=== PATIENT | female | born 1980 ===

== ENCOUNTER 2024-10-17 12:18 | Emergency (ER) | payer MEDICAID, SELFPAY ==
[2024-10-17 12:27] VITALS: BP 167/100; PULSE 59; RESP 20; TEMP 36.4; O2SAT 97
--- NOTE | 2024-10-17 13:16 | ED.GENADUL_ITS ---
Discharge Plan Disposition Patient Disposition: Home Discharge Details Clinical Impression: Back pain, Spasm of back muscles Primary Care Provider: Lilly,Local ED Provider: Audie Guajardo Home Meds and New Rx's Prescriptions: New gabapentin 300 mg capsule 300 mg PO TID Qty: 30 0RF diazepam 5 mg tablet 5 mg PO QHS PRNQty: 5 0RF diazepam 5 mg tablet 5 mg PO QHS PRNQty: 5 0RF Continued pregabalin 300 mg capsule 300 mg PO BID hydrochlorothiazide 25 mg tablet 25 mg PO DAILY metformin 500 mg tablet 500 mg PO BID Discharge Instructions Additional Instructions: You are seen in the emergency department for your back pain. Please take these medications as prescribed. Please not drive or drink alcohol after taking these medications. Please return to the emergency department as we discussed if you lose control of your bowels or bladder if you pass out or if you have any other concerns. Otherwise please follow-up with your primary care provider in the next month. For your pain please take medications as follows: 1. Take acetaminophen (Tylenol), 1,000 mg (two 500 mg tabs) every 6 hours [2. Take ibuprofen (Advil), 400 mg every 6 hours.] Discharge Data Discharge Date/Time-TO BE ENTERED AT DEPARTURE: 10/17/24 14:09 HPI General Date/Time Provider Initiated Documentation: 10/17/24 12:31 . HPI Narrative: MDM This is an overall very well-appearing normothermic and not tachycardic 44-year-old female with low back pain lacking red red flags appropriate for empiric trial of discharge with expectant outpatient management. No pain out of proportion to suggest necrotizing soft tissue infection. No acute neurological deficits to suggest acute cord pathology. No loss of bowel or bladder control to suggest cauda equina syndrome. Not anticoagulated and no recent spinal procedures to suggest increased risk for spinal epidural hematoma. Not an IV drug user no recent fevers to suggest increased risk for spinal epidural abscess so I did not feel the patient required an MRI. Patient is neurologically intact so I am not suspicious for CVA nor multiple sclerosis. No history of malignancy to suggest increased risk for pathological fractures so no indication for imaging. Patient requested a refill for her gabapentin which I gave her 30 mg p.o. 3 times daily. Given no weakness in feet nor numbness nor sensory changes I did not feel the patient required assessment of her distal lower extremity pulses. In the event that there is a component of spasm I also treated her with 5 mg of diazepam after reviewing her PDMP record where she had no other prescriptions for benzodiazepines. Discussed that she should return to the emergency department if she lost control of her bowel or bladder if he passed out or if she took any falls. We also discussed that she will follow-up with her new primary care provider in the area. She understood her return indications and was discharged from the emergency department. HPI This is a 44-year-old female with history of back pain arriving to the emergency department in setting of aching pain in her thoracic back that radiates to her right arm and her left leg. She reports that she has been shuffling snow recently. She reports that over the past 3 days she has had worsening pain. She has not lost control of her bowels or bladder. She has no history of malignancy. She denies history of anticoagulation use. She is connecting locally with a PCP. She denies IV drug use. She has not taken any recent falls. She does not have any abdominal pain or chest pain. Exam General: Uncomfortable-appearing in no acute distress speaking in complete sentences. Head: Normocephalic, atraumatic. Eye: Extraocular eye movements intact. No conjunctival injection. No scleral icterus. Ear, nose, mouth, throat: Grossly normal inspection. Normal voice, handling secretions normally. Neck: Trachea midline. Back: Diffuse paraspinal muscle spasm throughout thoracic and lumbar spine. No step-offs no deformities. No midline thoracic nor lumbar spinal tenderness. Cardiovascular: Well-perfused distal extremities. Respiratory: Nonlabored respiration. Gastrointestinal: Nondistended abdomen. Musculoskeletal: Patient has intact strength bilateral lowers on hip flexion and extension knee flexion extension dorsi plantarflexion and extension. No clonus bilaterally ankle reflexes. 5 out of 5 upper extremity strength dorsi and plantarflexion. W Skin: Normal for age and race, grossly normal temperature and turgor. No acute rash. Neurologic: Alert and appropriate, no apparent acute deficits. GCS 15. Psychiatric: Mood and manner are appropriate. Grooming and personal hygiene are appropriate. Related Data Home Medications ?Medication ?Instructions ?Recorded ?Confirmed diazepam 5 mg tablet 5 mg PO QHS PRN #5 tabs 10/17/24 diazepam 5 mg tablet 5 mg PO QHS PRN #5 tabs 10/17/24 gabapentin 300 mg capsule 300 mg PO TID #30 caps 10/17/24 hydrochlorothiazide 25 mg tablet 25 mg PO DAILY 10/17/24 10/17/24 metformin 500 mg tablet 500 mg PO BID 10/17/24 10/17/24 pregabalin 300 mg capsule 300 mg PO BID 10/17/24 10/17/24 Previous Rx's ?Medication ?Instructions ?Recorded diazepam 5 mg tablet 5 mg PO QHS PRN #5 tabs 10/17/24 diazepam 5 mg tablet 5 mg PO QHS PRN #5 tabs 10/17/24 gabapentin 300 mg capsule 300 mg PO TID #30 caps 10/17/24 Allergies Allergy/AdvReac Type Severity Reaction Status Date / Time No Known Allergies Allergy Unverified 10/17/24 12:30 General Stated Complaint: Nk/Back Pain LIA: 4 Course Vital Signs Vital signs: Vital Signs Temperature 36.4 C 10/17/24 12:27 Pulse 59 L 10/17/24 12:27 Respiratory Rate 20 10/17/24 12:27 Blood Pressure 167/100 H 10/17/24 12:27 Pulse Oximetry 97 10/17/24 12:27 Temperature 36.4 C 10/17/24 12:27 Pulse 59 L 10/17/24 12:27 Respiratory Rate 20 10/17/24 12:27 Blood Pressure 167/100 H 10/17/24 12:27 Blood Pressure Position Sitting 10/17/24 12:27 Pulse Oximetry 97 10/17/24 12:27 Oxygen Delivery Method Room Air 10/17/24 12:27 Oxygen Flow Rate 0 10/17/24 12:27 Medical Decision Making Quality:SDOH Health Related Social Needs: No Data to Display PFSH All Active Problems (Updated 10/17/24 @ 13:16 by Audie Guajardo MD) Spasm of back muscles (Acute) Back pain (Acute) Social History Smoking/Tobacco Use Status: Former Tobacco Use Quit Date: 12/03/08 Smoking risk assessment performed?: Yes Alcohol Intake: never Substance use type: marijuana Details: has medical card for pain control Do you feel safe at home: Yes Do you feel safe in your relationship?: Yes
[2024-10-17] MEDS: Acetaminophen 500 MG TAB 1000 MG PO (13:37)
[2024-10-17] MEDS: Ibuprofen 600 MG TAB PO (13:37)
[2024-10-17] MEDS: Gabapentin 300 MG CAP PO (13:37)
[2024-10-17] MEDS: diazePAM 5 MG TAB PO (13:38)
== END 2024-10-17 14:09 | disposition home or self-care (01) ==
LOC: ER 13:37
PROVIDERS: Emergency Provider Emergency Medicine
DX: M62.830 Muscle spasm of back (principal); M54.9 Dorsalgia, unspecified
CPT/HCPCS: 99283

== ENCOUNTER 2024-11-09 17:31 | Emergency (ER) | payer MEDICAID, SELFPAY ==
[2024-11-09 17:35] VITALS: BP 149/103; PULSE 67; RESP 20; TEMP 36.7; O2SAT 98
[2024-11-09 17:38] VITALS: BP 149/103; PULSE 67; RESP 20; TEMP 36.7; O2SAT 98
[2024-11-09] MEDS: Benzocaine 20% Gel 30 GM JAR MM (18:18)
--- NOTE | 2024-11-09 19:43 | ED.GENADUL_ITS ---
Discharge Plan Disposition Patient Disposition: Home Condition: Stable Discharge Details Clinical Impression: Dental infection Primary Care Provider: Lilly,Local ED Provider: Guadalupe Reynolds Home Meds and New Rx's Prescriptions: New clindamycin HCl 150 mg capsule 450 mg PO TID Qty: 90 0RF Continued pregabalin 300 mg capsule 300 mg PO BID hydrochlorothiazide 25 mg tablet 25 mg PO DAILY metformin 500 mg tablet 500 mg PO BID gabapentin 300 mg capsule 300 mg PO TID Qty: 30 0RF penicillin V potassium 500 mg tablet 500 mg PO 4XD Patient Comments: TAKE ONE TABLET BY MOUTH FOUR TIMES A DAY FOR 7 DAYS Discharge Instructions Instructions: Dental Pain (DC) Additional Instructions: motrin and tylenol as needed for pain antibiotic as prescribed gargle with saltwater three times daily please be reevaluated by oral surgeon as soon as possible, I've attached a list of resources Discharge Data Discharge Date/Time-TO BE ENTERED AT DEPARTURE: 11/09/24 18:19 HPI General Date/Time Provider Initiated Documentation: 11/09/24 17:32 . HPI Narrative: The patient is a 44-year-old female presenting after multiple upper dental extractions. She reports purulent drainage and escalating pain over her teeth, with some right ear pain. She stopped taking penicillin 3 days ago due to nausea. She is alert, oriented, and in no acute distress. Oropharynx patent, uvula midline. Purulence noted in the socket of tooth number 9 with mild swelling. No hard or soft palate induration, maintaining secretions, no trismus. TMs clear bilaterally. No submandibular edema. No evidence of Chacho's angina. Started on clindamycin. Given a dental list for follow-up and encouraged to follow up with [facility]. Return precautions reviewed and understood. Related Data Home Medications ?Medication ?Instructions ?Recorded ?Confirmed gabapentin 300 mg capsule 300 mg PO TID #30 caps 10/17/24 11/09/24 hydrochlorothiazide 25 mg tablet 25 mg PO DAILY 10/17/24 11/09/24 metformin 500 mg tablet 500 mg PO BID 10/17/24 11/09/24 pregabalin 300 mg capsule 300 mg PO BID 10/17/24 11/09/24 clindamycin HCl 150 mg capsule 450 mg (3 x 150 mg) PO TID #90 caps 11/09/24 penicillin V potassium 500 mg 500 mg PO 4XD 11/09/24 11/09/24 tablet Previous Rx's ?Medication ?Instructions ?Recorded gabapentin 300 mg capsule 300 mg PO TID #30 caps 10/17/24 clindamycin HCl 150 mg capsule 450 mg (3 x 150 mg) PO TID #90 caps 11/09/24 Allergies Allergy/AdvReac Type Severity Reaction Status Date / Time No Known Allergies Allergy Unverified 11/09/24 17:39 General Stated Complaint: DentalOral LIA: 4 Exam Narrative Exam Narrative: General Appearance: Alert, oriented, not in acute distress. Vital signs: Within normal limits. HEENT: Oropharynx patent, uvula midline. Purulence in the socket of tooth number 9 with mild swelling. No hard or soft palate induration. Maintaining secretions, no trismus. TMs clear bilaterally. No submandibular edema. No evidence of Chacho's angina. Respiratory: Within normal limits. Skin: Warm and dry, no rash. Neurological: Normal. Course Vital Signs Vital signs: Vital Signs Temperature 36.7 C 11/09/24 17:35 Pulse 67 11/09/24 17:35 Respiratory Rate 20 11/09/24 17:35 Blood Pressure 149/103 H 11/09/24 17:35 Pulse Oximetry 98 11/09/24 17:35 Temperature 36.7 C 11/09/24 17:38 Pulse 67 11/09/24 17:38 Respiratory Rate 20 11/09/24 17:38 Blood Pressure 149/103 H 11/09/24 17:38 Blood Pressure Position Sitting 11/09/24 17:38 Pulse Oximetry 98 11/09/24 17:38 Oxygen Delivery Method Room Air 11/09/24 17:38 Oxygen Flow Rate 0 11/09/24 17:38 Pain Level 8 11/09/24 18:18 Medical Decision Making Initial Assessment: 44-year-old female presents status post multiple dental extractions to upper mouth with purulent drainage and worsening pain over tooth number 9. Denies difficulty swallowing or shortness of breath. Right ear pain present. Stopped penicillin 3 days ago due to nausea. ED Course: - Examination reveals purulence in the socket of tooth number 9, mild swelling, no evidence of Chacho's angina. - Started on clindamycin. - Provided a dental list for follow-up and encouraged to follow up with [facility]. - Return precautions reviewed and understood. Final Assessment: Patient presents with post-dental extraction status with purulent drainage and pain over tooth number 9. Examination shows purulence and mild swelling without evidence of Chacho's angina. Started on clindamycin and provided follow-up instructions. Clinical Impression: - Post-dental extraction status - Purulent drainage in socket of tooth number 9 - Mild swelling - No evidence of Chacho's angina Disposition: - Discharge - Follow-Up: Encouraged to follow up with [facility]. [facility] Components Evaluation: - Number of Differential Diagnoses or Management Options: Post-dental extraction status, purulent drainage, Chacho's angina. - Amount and Complexity of Data Reviewed: Examination findings, patient history. - Risk of Complication and Morbidity or Mortality: Low risk given no evidence of Chacho's angina and patient is alert and oriented. Quality:[facility] Health Related Social Needs: No Data to Display PFSH All Active Problems (Updated 11/09/24 @ 18:02 by DENA Neumann) Dental infection (Acute) Spasm of back muscles (Acute) Back pain (Acute) Social History Smoking/Tobacco Use Status: Former Tobacco Use Quit Date: 12/03/08 Smoking risk assessment performed?: Yes Alcohol Intake: never Substance use type: marijuana Details: has medical card for pain control Do you feel safe at home: Yes Do you feel safe in your relationship?: Yes PAWSS Have you Been Recently Intoxicated or Drunk Within the Last 30 days?: No Have you Ever Experienced Previous Episodes of Alcohol Withdrawal?: No Have you ever Experienced Withdrawal Seizures?: No Have you ever Experienced Delirium Tremens(DT)s?: No Have you ever undergone Alcohol Rehabilitation Treatment (i.e, inpt ot outpatient treatment programs)?: No Have you ever Experienced Blackouts?: No Have you ever Combined Alcohol with other Downers within the last 90 days?: No Have you ever Combined Alcohol with any other Substance of Abuse during the last 90 days?: No Positive Blood Alcohol level on Presentation? [PCS.BAL]: No Evidence of Increased Autonomic Activity (i.e. HR>120, tremor, sweating, agitation, nausea)?: No Result: 0
== END 2024-11-09 18:19 | disposition home or self-care (01) ==
PROVIDERS: Emergency Provider Physician Assistant
DX: K04.7 Periapical abscess without sinus (principal); K13.79 Other lesions of oral mucosa; K08.89 Other specified disorders of teeth and supporting structures; Z98.818 Other dental procedure status; Z87.891 Personal history of nicotine dependence
CPT/HCPCS: 99283

== ENCOUNTER 2024-12-18 10:59 | Emergency (ER) | payer MEDICAID, SELFPAY ==
[2024-12-18 11:00] VITALS: BP 140/95; PULSE 75; RESP 12; TEMP 36.8; O2SAT 98
== END 2024-12-18 12:15 | disposition left against medical advice (07) ==
DX: Z53.20 Procedure and treatment not carried out because of patient's decision for unspecified reasons (principal)

== ENCOUNTER 2025-01-08 15:04 | Outpatient (CLI) | payer MEDICAID, SELFPAY ==
[2025-01-08 15:21] LABS: Abs Immature Grans 0.04 10^3/uL (0.0-0.06); Absolute Basophil Count 0.03 10^3/uL (0.0-0.2); Absolute Eosinophil Count 0.34 10^3/uL (0.0-0.7); Absolute Lymphocyte Count 2.94 10^3/uL (1.2-3.4); Absolute Monocyte Count 0.63 10^3/uL (0.1-0.8); Basophils % 0.3 %; Eosinophils % 3.3 %; HCT 37.8 % (36.0-46.0); HGB 12.7 g/dL (11.2-15.7); Immature Grans % 0.4 %; Lymphocytes % 28.3 %; MCH 29.1 pg (27.0-33.0); MCHC 33.6 % (32.0-36.0); MCV 87 fL (80-95); Monocytes % 6.1 %; Neutrophils % 61.6 %; Platelet Count 259 10^3/uL (130-400); RBC 4.36 10^6/uL (3.93-5.22); RDW 12.6 % (11.7-14.6); RDW-SD 39.6 fL; WBC 10.38 10^3/uL (4.4-10.8)
[2025-01-08 17:01] LABS: Ferritin 16 ng/mL (8-252)
== END 2025-01-08 15:05 | disposition home or self-care (01) ==
LOC: LBO 15:05
DX: D50.0 Iron deficiency anemia secondary to blood loss (chronic) (principal)
CPT/HCPCS: 36415; 82728; 85025

== ENCOUNTER 2025-01-12 18:36 | Outpatient (REF) | payer MEDICAID, SELFPAY ==
[2025-01-12 15:46] LABS: Anion Gap 10.9 mmol/L (3-11); BUN 15 mg/dL (7-18); CO2 27.1 mmol/L (21.0-32.0); CREATININE 0.7 mg/dL (0.55-1.02); Calcium 9.9 mg/dL (8.5-10.1); Chloride 101 mmol/L (98-107); Estimated GFR 108.62 (mL/min/1.73m2); Glucose 96 mg/dL (74-106); Magnesium 1.8 mg/dL (1.8-2.4); Sodium 139 mmol/L (136-145)
[2025-01-18 22:31] LABS: Pregabalin (Lyrica) 1.1 mcg/mL (2.0-5.0)
== END 2025-01-12 18:37 | disposition home or self-care (01) ==
LOC: NCHCN 18:36
PROVIDERS: Visit Provider Student in an Organized Health Care Education/Training Program
DX: G89.29 Other chronic pain (principal); I10 Essential (primary) hypertension; F98.8 Other specified behavioral and emotional disorders with onset usually occurring in childhood and adolescence
CPT/HCPCS: 80048; 82542; 83735

== ENCOUNTER 2025-01-15 00:39 | Outpatient (CLI) | payer MEDICAID, SELFPAY ==
--- NOTE | 2025-01-15 | DI.RAD_ITS ---
Exam(s) XR KNEE LT 3V AP,LAT,RAMAN EXAM: XR KNEE LT 3V AP,LAT,RAMAN CLINICAL HISTORY: LT KNEE PAIN, M25.562,H/O FALL. TECHNIQUE: 2D digital imaging was performed. Three views. COMPARISON: No exams were available for comparison FINDINGS: BONES: No acute fracture is present. No bony destructive lesion is seen. Enthesophyte upper pole t he patella. JOINTS: The knee is normally aligned. No joint effusion is seen. Minimal periarticular spurring.. The joint spaces are maintained. SOFT TISSUE: Normal. IMPRESSION: Minimal degenerative changes. DATA REPOSITORY: RADIATION DOSE DELIVERED:
== END 2025-01-15 00:59 ==
PROVIDERS: PCP Student in an Organized Health Care Education/Training Program; Visit Provider Student in an Organized Health Care Education/Training Program
DX: M25.562 Pain in left knee (principal)
CPT/HCPCS: 73562

== ENCOUNTER 2025-03-10 10:18 | Outpatient (CLI) | payer MEDICAID, SELFPAY ==
[2025-03-10 10:15] LABS: Abs Immature Grans 0.03 10^3/uL (0.0-0.06); HCT 39.4 % (36.0-46.0); HGB 13.5 g/dL (11.2-15.7); Immature Grans % 0.4 %; MCH 29.3 pg (27.0-33.0); MCHC 34.3 % (32.0-36.0); MCV 86 fL (80-95); MPV 10.5 fL (8.0-11.0); Platelet Count 261 10^3/uL (130-400); RBC 4.61 10^6/uL (3.93-5.22); RDW 12.3 % (11.7-14.6); RDW-SD 38.4 fL; WBC 8.28 10^3/uL (4.4-10.8)
[2025-03-10 10:42] LABS: Ferritin 159 ng/mL (8-252)
== END 2025-03-10 10:19 | disposition home or self-care (01) ==
LOC: LBO 10:23
PROVIDERS: PCP Student in an Organized Health Care Education/Training Program
DX: D50.0 Iron deficiency anemia secondary to blood loss (chronic) (principal)
CPT/HCPCS: 36415; 82728; 85025

== ENCOUNTER 2025-04-13 16:37 | Outpatient (REF) | payer MEDICAID, SELFPAY ==
[2025-04-13 15:32] LABS: Calculated LDL 145 mg/dL (<100); Cholesterol 212 mg/dL (<200); HDL Cholesterol 42 mg/dL (>or=50); Triglyceride 129 mg/dL (<150)
[2025-04-13 16:13] LABS: COMMENT (LAB VIEW ONLY) 94.40 mg/dL; Microalb ug/mg Crea 7.8 ug/mg Cr
== END 2025-04-13 16:38 | disposition home or self-care (01) ==
LOC: NCHCN 16:37
PROVIDERS: PCP Student in an Organized Health Care Education/Training Program; Visit Provider Student in an Organized Health Care Education/Training Program
DX: E11.9 Type 2 diabetes mellitus without complications (principal)
CPT/HCPCS: 80061; 82043; 82570

== ENCOUNTER 2025-05-09 09:31 | Emergency (ER) | payer MEDICAID, SELFPAY ==
--- NOTE | 2025-05-09 09:45 | DI.CT_ITS ---
Exam(s) CT ABDOMEN PELVIS W EXAM: CT ABDOMEN PELVIS W CLINICAL HISTORY: intractable vomiting, epigastric tenderness. TECHNIQUE: Imaging Protocol: Axial computed tomography images with coronal and sagittal reformatted images were created and reviewed CONTRAST MATERIAL: Intravenous: Omnipaque-350 100cc Oral: None COMPARISON: No exams were available for comparison FINDINGS: VISUALIZED LUNG BASES: No nodules nor pleural effusions evident. ABDOMEN: There is no ascites. LIVER: Liver size is prominent and liver is diffusely hypodense implying steatosis. There are no discrete focal hepatic lesions identified. No dilated intrahepatic ducts. GALLBLADDER/BILIARY: There is uniform enhancement of the gallbladder wall. No obvious radiopaque gallstones nor gallbladder wall edema nor pericholecystic fluid. CBD is not dilated. PANCREAS: No evidence of pancreatic mass nor dilatation of the pancreatic duct. SPLEEN: Mild splenomegaly. Craniocaudal measurement of the spleen is 13.4 cm. There are no intrasplenic lesions. Splenic and portal veins is are patent. ADRENALS: There are no significant adrenal masses. KIDNEYS:No cysts evident. No solid renal masses. No calculi nor hydronephrosis.. ABDOMINAL AORTA: Abdominal aorta is not enlarged. LYMPH NODES:There is no retroperitoneal nor paraaortic adenopathy. ABDOMINAL WALL: No evidence of significant anterior abdominal wall nor inguinal hernia. GI: There is no evidence of bowel obstruction, free air, nor abscess. PELVIS: GI: No evidence of appendicitis.No evidence of sigmoid diverticulitis. LYMPH NODES: There is no intrapelvic nor inguinal adenopathy. REPRODUCTIVE: Uterus is anteverted and normal size. No obvious fibroids. There is a cyst in the right ovary which measures 2.3 by 2 cm. No surrounding fluid. Left ovary unremarkable. No free fluid in the pelvis. URINARY BLADDER: No calculi nor obvious masses evident OSSEOUS: No fractures and no significant osseous lesions. Chronic disc space narrowing L5-S1 level. No listhesis. No pars defects. IMPRESSION: 1. There is hepatomegaly, hepatic steatosis, and mild splenomegaly. There are no obvious varices and there is no ascites. 2. There is a cyst in the right ovary which measures 2.3 x 2.0 cm, probably follicular. There is no surrounding fluid in the adnexa and cul-de-sac. Preliminary virtual Radiology report was reviewed RADIATION DOSE DELIVERED: 790.93mGy.cm Total DLP DATA REPOSITORY: All CT scans at this facility are submitted to the National Radiology Data Registry (NRDR) Dose Index Registry (DIR) with the [employer] (A[employer]). RADIATION OPTIMIZATION: All CT scans at this facility use at least one of these dose optimization techniques: automated exposure control; mA and/or kV adjustment per patient size (includes targeted exams where dose is matched to clinical indication); or iterative reconstruction.
--- NOTE | 2025-05-09 09:45 | RT.EKG_ITS ---
APPROVED REPORT Exam: Resting ECG Reason for Exam: epigastric pain Patient Location: E HR:48 bpm ECG Measurements Heart Rate 48 AXIS NH 196 P 33 QRSd 135 QRS 22 QT 446 T 34 QTc 399 Conclusion Sinus bradycardia, rate 48 No interval abnormalities IVCD No STEMI No priors available for comparison
[2025-05-09 09:46] VITALS: BP 150/78; PULSE 67; RESP 16; TEMP 36.7; O2SAT 96
--- NOTE | 2025-05-09 09:50 | W.ED.GENAD ---
Discharge Plan Disposition Patient Disposition: Eloped Condition: Stable Discharge Details Clinical Impression: Abdominal pain of unknown cause Primary Care Provider: King Bell ED Provider: Lobo Langford Home Meds and New Rx's Prescriptions: No Action pregabalin 300 mg capsule 300 mg PO BID hydrochlorothiazide 25 mg tablet 25 mg PO DAILY metformin 500 mg tablet 500 mg PO BID HPI General Date/Time Provider Initiated Documentation: 05/09/25 09:49. HPI Narrative: 45 year-old female presents to ED today by POV/ambulating with her spouse with a chief complaint of generalized abdominal pain, nausea and vomiting with onset 4 days ago. Quality described as abdominal pain after eating, throwing up bile, no radiation to fever, chest pain, shortness of breath, dizziness, black/bloody stools, no active vomiting. Severity is described as severe. Palliating factors include nothing specific attempted. Provoking factors include nothing specific. Events leading up to the incident/Associated Symptoms: Patient denies prior abdominal surgeries. Patient not anticoagulated. Related Data Home Medications ?Medication ?Instructions ?Recorded ?Confirmed hydrochlorothiazide 25 mg tablet 25 mg PO DAILY 10/17/24 05/09/25 metformin 500 mg tablet 500 mg PO BID 10/17/24 05/09/25 pregabalin 300 mg capsule 300 mg PO BID 10/17/24 05/09/25 Allergies Allergy/AdvReac Type Severity Reaction Status Date / Time No Known Allergies Allergy Verified 05/09/25 09:48 General Stated Complaint: Nausea/Vomit/Diar LIA: 3 Review of Systems All systems reviewed & are unremarkable except as noted in HPI and below Exam Narrative Exam Narrative: GENERAL APPEARANCE: Well-nourished, non-toxic, awake and alert, atraumatic, no acute distress. SKIN: Warm, pink, dry, intact, without rashes/lesions/ulcerations. HEAD: Normocephalic, atraumatic, normal hair distribution for gender/age. EYES: Normal conjunctiva, no exudates on lids/lashes. ENT: Nares patent, no circumoral cyanosis, no facial swelling NECK: Supple, trachea midline, painless cervical ROM. LUNGS/CHEST: Lungs CTA bilaterally, non-labored respirations, normal A/P diameter, symmetrical expansion, no chest wall deformity HEART (CV/PV): Regular rate and rhythm without murmur, no peripheral edema, no JVD. ABDOMEN: Soft, non-distended, no guarding, epigastric tenderness with negative Cowan's sign. MSK: Normal ROM, no swelling/deformity to bilateral UEs or LEs, moving all extremities without weakness, no cyanosis, spine midline without tenderness, normal curvature. NEURO: Mental Status AAOx4 - alert to person, place, time, events No facial droop, no forehead involvement. Motor: No focal weakness - strength 5/5 in bilateral UEs and LEs, proximal and distal, symmetric. Sensory: sensation intact to light touch globally. Gait normal: patient ambulated without ataxia into ED room. PSYCH: euthymic, cooperative, pleasant, appropriate speech Course Vital Signs Vital signs: Vital Signs Temperature 36.7 C 05/09/25 09:46 Pulse 67 05/09/25 09:46 Respiratory Rate 16 05/09/25 09:46 Blood Pressure 150/78 H 05/09/25 09:46 Pulse Oximetry 96 05/09/25 09:46 Temperature 36.7 C 05/09/25 09:46 Temperature Source Oral 05/09/25 09:46 Pulse 67 05/09/25 09:46 Respiratory Rate 16 05/09/25 09:46 Blood Pressure 150/78 H 05/09/25 09:46 Blood Pressure Position Sitting 05/09/25 09:46 Pulse Oximetry 96 05/09/25 09:46 Oxygen Delivery Method Room Air 05/09/25 09:46 Oxygen Flow Rate 0 05/09/25 09:46 Medical Decision Making This dictation utilizes [id number] dictation software and may contain unedited grammatical errors. 45 year-old female presents to ED today by POV/ambulating with her spouse with a chief complaint of generalized abdominal pain, nausea and vomiting with onset 4 days ago. Quality described as abdominal pain after eating, throwing up bile, no radiation to fever, chest pain, shortness of breath, dizziness, black/bloody stools, no active vomiting. Severity is described as severe. Palliating factors include nothing specific attempted. Provoking factors include nothing specific. Events leading up to the incident/Associated Symptoms: Patient denies prior abdominal surgeries. Patients' medical history: CKD, diabetes, Suboxone use. Family and social history: Denies EtOH or IVDU use. Pertinent exam findings / vital signs include epigastric abdominal tenderness, negative Cowan sign, benign cardiopulmonary exam, nontoxic and afebrile. Differential / pathologies of concern include gastritis, duodenitis, biliary colic, pancreatitis, viral syndrome, gastroenteritis. Diagnostic studies of: -CBC, CMP, lipase, magnesium, troponin, lactate, urinalysis, EKG, CT ABD/pelvis with contrast, x-ray chest - CBC shows no actionable abnormality - Lactate negative - CMP shows mild hypokalemia, repleted p.o. - Troponin negative - EKG shows normal sinus rhythm with P waves followed by narrow complex QRS with normal axis, good R wave progression, no ST changes of ischemia, no priors for comparison - Lipase negative - UA negative - Magnesium within normal limits - X-ray chest shows no acute pathology - CT ABD/pelvis shows no acute pathology, has moderate hepatomegaly and fatty liver, mild splenomegaly and a complex right ovarian cyst which is well away from her pain on today's exam Interventions of: -1 g IV Tylenol, 15 mg IV ketorolac, 4 mg IV Zofran, 1 L IVF NS. 40 mEq of PO potassium. ED Course/Assessment/Plan: 45-year-old female presents with 4 days of nausea and vomiting worse after eating but cannot keep anything down. She was given IV fluids and conservative medicines here, has no peritoneal signs on exam, her laboratory workup is quite benign but she did elope without telling anyone prior to her CT and x-ray reads from [facility]. There is no needed intervention at this time, prior to her eloping I did discuss with her possible gastritis and the need to see general surgery or GI for upper endoscopy at some point in the future. Findings not consistent with perforated viscous, biliary cholangitis, sepsis, pancreatitis, UTI, ACS. Disposition of Abdominal Pain of Unknown Cause. Patient verbalized understanding of the plan and return to ED criteria and engaged in shared decision making. Medical Records Medical records reviewed: Yes I reviewed the patient's medical records. Imaging Data Radiologic Study: Attestation: I personally reviewed and interpreted this imaging study as follows: Imaging: X-Ray Radiologist's impression: Exam: XR Chest Exam date and time: 05/09/2025 11:52 AM Age: 45 years old Clinical indication: Other: Epigastric pain TECHNIQUE: Imaging protocol: Radiologic exam of the chest. Views: 2 views. COMPARISON: CT ABDOMEN PELVIS W 05/09/2025 11:07 AM FINDINGS: Lungs: Unremarkable. No consolidation. Pleural spaces: Unremarkable. No pleural effusion. No pneumothorax. Heart/Mediastinum: Mild cardiomegaly. Bones/joints: Unremarkable. IMPRESSION: No evidence of active cardiopulmonary disease. Dictated and Authenticated by: Evelia Gauthier MD. Radiologic Study #2: Attestation: I personally reviewed and interpreted this imaging study as follows: Imaging: CT Scan Radiologist's impression: Exam: CT Abdomen And Pelvis With Contrast Exam date and time: 05/09/2025 11:07 AM Age: 45 years old Clinical indication: Other: Intractable vomiting, epigastric tenderness TECHNIQUE: Imaging protocol: Computed tomography of the abdomen and pelvis with contrast. Contrast material: OMNIPAQUE 350; Contrast volume: 100 ml; Contrast route: INTRAVENOUS (IV); COMPARISON: No relevant prior studies available. FINDINGS: Heart: Mild cardiomegaly. Liver: 25 cm longitudinal dimension of liver, consistent with hepatomegaly. The liver is diffusely moderately hypoattenuating. The liver is not grossly cirrhotic in morphology. Gallbladder and biliary ducts: The gallbladder is partially contracted and otherwise unremarkable. No biliary dilatation. Pancreas: Normal. No ductal dilation. Spleen: 13.7 cm maximum dimension of the spleen. Adrenal glands: Thickening of the left adrenal gland likely related to benign adenomatous change. Unremarkable right adrenal gland. Kidneys and ureters: Normal. No hydronephrosis. Stomach and bowel: Unremarkable. No obstruction. No mucosal thickening. Appendix: Normal appendix. Intraperitoneal space: Unremarkable. No free air. No significant fluid collection. Vasculature: Unremarkable. No abdominal aortic aneurysm. Lymph nodes: Unremarkable. No enlarged lymph nodes. Urinary bladder: Unremarkable as visualized. Reproductive: There is a 2.4 cm cyst in the right ovary which contains a small amount of eccentric soft tissue attenuation material (34 HU). Otherwise unremarkable reproductive structures. Bones/joints: Severe degenerative disc disease is seen at L5-S1, with associated marked disc space narrowing and sclerosis of the vertebral endplates. [id number] degenerative changes of the lower thoracic spine. No acute or suspicious osseous abnormalities. Mild kyphosis of the lower thoracic spine. Soft tissues: Unremarkable. IMPRESSION: 1. Moderate hepatomegaly and moderate diffuse fatty infiltration of the liver. Correlate with laboratory data. 2. Mild splenomegaly. 3. Complex right ovarian cyst which may contain a small amount of retracting clot, however a mural nodule can not be excluded. Recommend pelvic ultrasound for further evaluation. If the patient's symptoms are not referable to this finding, the pelvic ultrasound can be performed on a nonemergent basis. Dictated and Authenticated by: Evelia Gauthier MD. Lab Data Lab results reviewed: Yes I reviewed the patient's lab results. Labs: Laboratory Tests Range/Units 05/09/25 05/09/25 10:42 11:59 WBC (4.4-10.8) 10^3/uL 8.12 RBC (3.93-5.22) 10^6/uL 4.44 Hgb (11.2-15.7) g/dL 13.0 Hct (36.0-46.0) % 37.6 MCV (80-95) fL 85 MCH (27.0-33.0) pg 29.3 MCHC (32.0-36.0) % 34.6 RDW (11.7-14.6) % 12.1 Plt Count (130-400) 10^3/uL 202 MPV (8.0-11.0) fL 11.1 H Immature Gran % % 0.4 Neutrophils % % 67.7 Lymphocytes % % 25.1 Monocytes % % 6.2 Eosinophils % % 0.5 Basophils % % 0.1 Nucleated RBC % (0.0-0.3) % 0.0 Absolute Neutrophils (1.2-6.7) 10^3/uL 5.50 Absolute Lymphocytes (1.2-3.4) 10^3/uL 2.04 Absolute Monocytes (0.1-0.8) 10^3/uL 0.50 Absolute Eosinophils (0.0-0.7) 10^3/uL 0.04 Absolute Basophils (0.0-0.2) 10^3/uL 0.01 VBG Lactate (<or=2.0) mmol/L 1.3 Sodium (136-145) mmol/L 139 Potassium (3.5-5.1) mmol/L 3.3 L Chloride (98-107) mmol/L 101 Carbon Dioxide (21.0-32.0) mmol/L 30.0 Anion Gap (3-11) mmol/L 8.0 BUN (7-18) mg/dL 12 Creatinine (0.55-1.02) mg/dL 0.7 Est GFR (CKD-EPI 2020) (mL/min/1.73m2) 107.95 Glucose (74-106) mg/dL 142 H Calcium (8.5-10.1) mg/dL 9.0 Magnesium (1.8-2.4) mg/dL 1.8 Total Bilirubin (0.2-1.0) mg/dL 0.9 AST (15-37) U/L 46 H ALT (14-59) U/L 64 H Alkaline Phosphatase (46-116) U/L 40 L Troponin I (<or=51) ng/L 11 Total Protein (6.4-8.2) g/dL 8.0 Albumin (3.4-5.0) g/dL 4.0 Lipase (<78) U/L 26 Urine Color (Yellow) Dark Yellow Urine Clarity (Clear) Clear Urine pH (5-8) 6.0 Ur Specific [place] (1.005-1.025) 1.015 Urine Protein (Neg-Trace) mg/dL Negative Urine Ketones (Negative) mg/dL Negative Urine Blood (Negative) Negative Urine Nitrite (Negative) Negative Urine Bilirubin (Negative) Negative Urine Urobilinogen (Up to 0.2) mg/dL 0.2 Ur Leukocyte Esterase (Negative) Negative Urine Glucose (Negative) mg/dL Negative PFSH All Active Problems (Updated 05/09/25 @ 13:01 by DENA Lawrence) Abdominal pain of unknown cause (Acute) Social History Smoking/Tobacco Use Status: Former Tobacco Use Quit Date: 12/03/08 Smoking risk assessment performed?: Yes Alcohol Intake: never Drug use: Daily Substance use type: marijuana Details: has medical card for pain control Housing: house Do you feel safe at home: Yes Do you feel safe in your relationship?: Yes
--- NOTE | 2025-05-09 09:57 | DI.RAD_ITS ---
Exam(s) XR CHEST 2V PA LATERAL EXAM: XR CHEST 2V PA LATERAL CLINICAL HISTORY: epigastric pain. TECHNIQUE: 2D digital imaging was performed. COMPARISON: No exams were available for comparison FINDINGS: 2 views: Heart size is normal. The mediastinum is not widened. Lungs are clear. No infiltrates nor pleural effusions. IMPRESSION: No acute pulmonary findings. DATA REPOSITORY: RADIATION DOSE DELIVERED:
[2025-05-09] MEDS: Normal Saline 1,000 ML 1000 ML IV (10:45)
[2025-05-09 10:48] LABS: Abs Immature Grans 0.03 10^3/uL (0.0-0.06); HCT 37.6 % (36.0-46.0); HGB 13.0 g/dL (11.2-15.7); Immature Grans % 0.4 %; MCH 29.3 pg (27.0-33.0); MCHC 34.6 % (32.0-36.0); MCV 85 fL (80-95); MPV 11.1 fL (8.0-11.0); Platelet Count 202 10^3/uL (130-400); RBC 4.44 10^6/uL (3.93-5.22); RDW 12.1 % (11.7-14.6); RDW-SD 37.0 fL; WBC 8.12 10^3/uL (4.4-10.8)
[2025-05-09] MEDS: Ketorolac 15 MG/ML VIAL IVP (10:56)
[2025-05-09] MEDS: Ondansetron 4 MG/2 ML VIAL IVP (10:56)
[2025-05-09] MEDS: ACETAMINOPHEN 1,000 MG/100 ML BAG 400 MG IVPB (10:56)
[2025-05-09 11:18] LABS: ALT 64 U/L (14-59); AST 46 U/L (15-37); Albumin 4.0 g/dL (3.4-5.0); Alkaline Phosphatase 40 U/L (46-116); Anion Gap 8.0 mmol/L (3-11); BUN 12 mg/dL (7-18); Bilirubin, Total 0.9 mg/dL (0.2-1.0); CO2 30.0 mmol/L (21.0-32.0); Calcium 9.0 mg/dL (8.5-10.1); Chloride 101 mmol/L (98-107); Estimated GFR 107.95 (mL/min/1.73m2); Glucose 142 mg/dL (74-106); Lipase 26 U/L (<78); Magnesium 1.8 mg/dL (1.8-2.4); Potassium 3.3 mmol/L (3.5-5.1); Sodium 139 mmol/L (136-145); Total Protein 8.0 g/dL (6.4-8.2); Troponin I 11 ng/L (<or=51)
[2025-05-09] MEDS: Normal Saline - Diluent 50 ML VIAL IJ (11:39)
[2025-05-09 12:12] LABS: Glucose Negative (Negative)
[2025-05-09] MEDS: Potassium Chloride 20 MEQ TABCR 40 MEQ PO (12:14)
--- NOTE | 2025-05-09 12:24 | DI.VRAD_ITS ---
PROCEDURE INFORMATION: Exam: XR Chest Exam date and time: 05/09/2025 11:52 AM Age: 45 years old Clinical indication: Other: Epigastric pain TECHNIQUE: Imaging protocol: Radiologic exam of the chest. Views: 2 views. COMPARISON: CT ABDOMEN PELVIS W 05/09/2025 11:07 AM FINDINGS: Lungs: Unremarkable. No consolidation. Pleural spaces: Unremarkable. No pleural effusion. No pneumothorax. Heart/Mediastinum: Mild cardiomegaly. Bones/joints: Unremarkable. IMPRESSION: No evidence of active cardiopulmonary disease. Dictated and Authenticated by: Evelia Gauthier MD. Orderin Primitivo Diamond MD
--- NOTE | 2025-05-09 12:24 | DI.VRAD_ITS ---
PROCEDURE INFORMATION: Exam: CT Abdomen And Pelvis With Contrast Exam date and time: 05/09/2025 11:07 AM Age: 45 years old Clinical indication: Other: Intractable vomiting, epigastric tenderness TECHNIQUE: Imaging protocol: Computed tomography of the abdomen and pelvis with contrast. Contrast material: OMNIPAQUE 350; Contrast volume: 100 ml; Contrast route: INTRAVENOUS (IV); COMPARISON: No relevant prior studies available. FINDINGS: Heart: Mild cardiomegaly. Liver: 25 cm longitudinal dimension of liver, consistent with hepatomegaly. The liver is diffusely moderately hypoattenuating. The liver is not grossly cirrhotic in morphology. Gallbladder and biliary ducts: The gallbladder is partially contracted and otherwise unremarkable. No biliary dilatation. Pancreas: Normal. No ductal dilation. Spleen: 13.7 cm maximum dimension of the spleen. Adrenal glands: Thickening of the left adrenal gland likely related to benign adenomatous change. Unremarkable right adrenal gland. Kidneys and ureters: Normal. No hydronephrosis. Stomach and bowel: Unremarkable. No obstruction. No mucosal thickening. Appendix: Normal appendix. Intraperitoneal space: Unremarkable. No free air. No significant fluid collection. Vasculature: Unremarkable. No abdominal aortic aneurysm. Lymph nodes: Unremarkable. No enlarged lymph nodes. Urinary bladder: Unremarkable as visualized. Reproductive: There is a 2.4 cm cyst in the right ovary which contains a small amount of eccentric soft tissue attenuation material (34 HU). Otherwise unremarkable reproductive structures. Bones/joints: Severe degenerative disc disease is seen at L5-S1, with associated marked disc space narrowing and sclerosis of the vertebral endplates. [id number] degenerative changes of the lower thoracic spine. No acute or suspicious osseous abnormalities. Mild kyphosis of the lower thoracic spine. Soft tissues: Unremarkable. IMPRESSION: 1. Moderate hepatomegaly and moderate diffuse fatty infiltration of the liver. Correlate with laboratory data. 2. Mild splenomegaly. 3. Complex right ovarian cyst which may contain a small amount of retracting clot, however a mural nodule can not be excluded. Recommend pelvic ultrasound for further evaluation. If the patient's symptoms are not referable to this finding, the pelvic ultrasound can be performed on a nonemergent basis. Dictated and Authenticated by: Evelia Gauthier MD. Orderin Primitivo Diamond MD
[2025-05-09 12:29] VITALS: BP 172/90; PULSE 64; O2SAT 97
[2025-05-09 12:34] VITALS: BP 150/78; PULSE 67; RESP 16; TEMP 36.7; O2SAT 97
== END 2025-05-09 13:01 | disposition left against medical advice (07) ==
PROVIDERS: Emergency Provider Physician Assistant; PCP Student in an Organized Health Care Education/Training Program
DX: R10.84 Generalized abdominal pain (principal); R11.10 Vomiting, unspecified; R51.9 Headache, unspecified; Z87.891 Personal history of nicotine dependence
CPT/HCPCS: 36415; 80053; 83690; 93005; 96361; 96374; 96375; 99285; 71046; 74177; 81003; 83605; 83735; 84484; 85025; 93010; J0131; J1885; J2405

== ENCOUNTER 2025-05-18 10:19 | Outpatient (REF) | payer MEDICAID, SELFPAY ==
[2025-05-19 12:26] LABS: Chlamydia Result Negative (Negative); GC Result Negative (Negative)
== END 2025-05-18 10:20 | disposition home or self-care (01) ==
LOC: LBN 10:19
PROVIDERS: PCP Student in an Organized Health Care Education/Training Program; Visit Provider Obstetrics & Gynecology
DX: Z12.4 Encounter for screening for malignant neoplasm of cervix (principal)
CPT/HCPCS: 87491; 87591; 88142; 87624

== ENCOUNTER 2025-05-18 12:43 | Outpatient (CLI) | payer MEDICAID, SELFPAY ==
[2025-05-18 10:50] LABS: Abs Immature Grans 0.02 10^3/uL (0.0-0.06); HCT 39.0 % (36.0-46.0); HGB 13.4 g/dL (11.2-15.7); Immature Grans % 0.2 %; MCH 29.3 pg (27.0-33.0); MCHC 34.4 % (32.0-36.0); MCV 85 fL (80-95); MPV 10.4 fL (8.0-11.0); Platelet Count 306 10^3/uL (130-400); RBC 4.58 10^6/uL (3.93-5.22); RDW 12.3 % (11.7-14.6); RDW-SD 38.5 fL; WBC 9.05 10^3/uL (4.4-10.8)
[2025-05-18 11:16] LABS: INR 1.0 (0.9-1.1); PTT Activated 24.5 sec (20.6-30.2); Prothrombin Time 10.3 sec (9.1-11.1)
[2025-05-18 13:34] LABS: Hemoglobin A1C 5.7 % (<5.7)
[2025-05-18 13:46] LABS: ALT 62 U/L (14-59); AST 41 U/L (15-37); Albumin 3.9 g/dL (3.4-5.0); Alkaline Phosphatase 52 U/L (46-116); Anion Gap 9.9 mmol/L (3-11); BUN 12 mg/dL (7-18); Bilirubin, Total 0.5 mg/dL (0.2-1.0); CO2 28.1 mmol/L (21.0-32.0); Calcium 9.3 mg/dL (8.5-10.1); Chloride 102 mmol/L (98-107); Estimated GFR 107.95 (mL/min/1.73m2); Glucose 97 mg/dL (74-106); Potassium 3.7 mmol/L (3.5-5.1); Sodium 140 mmol/L (136-145); TSH (W/Ref FT4) 0.40 uIU/mL (0.36-3.74); Total Protein 7.8 g/dL (6.4-8.2)
[2025-05-18 15:54] LABS: Ferritin 124 ng/mL (8-252)
[2025-05-18 16:09] LABS: Iron 86 ug/dL (50-170); Total Iron Binding Capacity 311 ug/dL (250-450)
[2025-05-20 14:15] LABS: Coag FactorVIII Activity Assay 96 % (55 - 200)
== END 2025-05-18 12:44 | disposition home or self-care (01) ==
LOC: LBO 12:43
PROVIDERS: PCP Student in an Organized Health Care Education/Training Program; Visit Provider Obstetrics & Gynecology
DX: N93.9 Abnormal uterine and vaginal bleeding, unspecified (principal); D64.9 Anemia, unspecified; E66.9 Obesity, unspecified
CPT/HCPCS: 36415; 80053; 85240; 85246; 85390; 85397; 82728; 83036; 83540; 83550; 84443; 85025; 85610; 85730

== ENCOUNTER 2025-06-08 10:47 | Outpatient (CLI) | payer MEDICAID, SELFPAY ==
[2025-06-08 12:17] LABS: TSH (W/Ref FT4) 0.40 uIU/mL (0.36-3.74)
== END 2025-06-08 10:48 | disposition home or self-care (01) ==
LOC: LBO 10:47
PROVIDERS: PCP Student in an Organized Health Care Education/Training Program; Visit Provider Student in an Organized Health Care Education/Training Program
DX: E04.2 Nontoxic multinodular goiter (principal)
CPT/HCPCS: 36415; 84443

== ENCOUNTER → 2025-08-02 00:37 | Outpatient (CLI) | payer MEDICAID, SELFPAY ==
--- NOTE | 2025-08-02 | DI.US_ITS ---
Exam(s) US THYROID EXAM: US THYROID CLINICAL HISTORY: MULTIPLE THYROID NODULES LT SIDE E04.[address] 11/2022 8 16MM NODULES. TECHNIQUE: Ultrasound thyroid performed using standard protocol. COMPARISON: CT CT SOFT TISSUE NECK W CONTRAST from 12/16/2022 FINDINGS: ISTHMUS: 3 mm RIGHT LOBE: Size: 5.5 x 1.7 x 1.9 cm Echogenicity: Heterogeneous Vascularity: Normal. Nodules: 3 nodules less than 6 millimeters in size. LEFT LOBE: Size: 5.9 x 2.3 x 2.4 cm Echogenicity: Heterogeneous Vascularity: Normal. Nodules: 1. 2.8 x 2.1 x 2.3 centimeter solid isoechoic nodule in the mid to lower pole. It is wider than tall smoothly marginated with punctate and macrocalcifications. TR 5. FNA recommended. 2. 1.1 x 1.0 x 1.1 centimeter solid, hypoechoic wider than tall nodule with smooth margins. No echogenic foci. TR 4. OTHER FINDINGS: No suspicious lymph nodes. IMPRESSION: 2.8 centimeter TR 5 nodule in the mid to lower pole of the left lobe of the thyroid. This appears larger than on the previous CT. FNA is recommended. DATA REPOSITORY:
== END ==
LOC: DI 00:37
PROVIDERS: PCP Student in an Organized Health Care Education/Training Program; Visit Provider Student in an Organized Health Care Education/Training Program
DX: E04.2 Nontoxic multinodular goiter (principal)
CPT/HCPCS: 76536

== ENCOUNTER 2025-08-10 09:40 | Outpatient (CLI) | payer MEDICAID, SELFPAY ==
[2025-08-10 10:46] LABS: TSH 0.31 uIU/mL (0.55-4.78)
[2025-08-10 17:33] LABS: T3,Free 3.8 pg/mL (2.8-5.3)
[2025-08-10 17:47] LABS: T3, Total 109 ng/dL (82-158)
== END 2025-08-10 09:41 | disposition home or self-care (01) ==
LOC: LBO 09:45
PROVIDERS: PCP Student in an Organized Health Care Education/Training Program; Visit Provider Student in an Organized Health Care Education/Training Program
DX: E04.1 Nontoxic single thyroid nodule (principal)
CPT/HCPCS: 36415; 84235; 84439; 84443; 84480; 84481